=== PATIENT | female | born 1940 | race Caucasian/White ===

== ENCOUNTER 2024-04-15 15:30 | Outpatient (RCR) | payer MEDICARE, BC, SELFPAY ==
[2024-02-19 14:38] VITALS: BMI 34.2
[2024-02-19 16:58] VITALS: BMI 34.2
[2024-02-26 14:56] VITALS: BMI 34.2
[2024-03-04 15:31] VITALS: BMI 34.2
[2024-03-13 07:28] VITALS: BMI 34.2
[2024-03-18 12:38] VITALS: BMI 34.2
[2024-03-25 15:13] VITALS: BMI 34.2
[2024-04-01 15:11] VITALS: BMI 34.2
[2024-04-15 16:08] VITALS: BMI 34.2
[2024-06-19 09:54] VITALS: BMI 34.2
== END 2024-08-13 23:59 | disposition home or self-care (01) ==
PROVIDERS: PCP Pediatrics; Visit Provider Pediatrics
DX: I89.0 Lymphedema, not elsewhere classified (principal); Z51.89 Encounter for other specified aftercare
CPT/HCPCS: 97110; 97140; 97166; X5282